=== PATIENT | male | born 1945 | race Caucasian/White ===

== ENCOUNTER 2018-07-08 05:17 | Inpatient (IN) | payer MEDICARE, OTHER ==
[2018-06-30 13:11] LABS: CLARITY,URINE CLEAR (Clear); COLOR,URINE YELLOW (Yellow); GLUCOSE, URINE NEGATIVE (Neg); KETONES,URINE NEGATIVE (Neg); LEUKOCYTE ESTERASE ,URINE NEGATIVE (Neg); NITRITES, URINE NEGATIVE (Neg); OCCULT BLOOD,URINE NEGATIVE (Neg); PROTEIN,URINE NEGATIVE (Neg); UROBILINOGEN,URINE 0.2 E.U/dL (0.2-1.0)
[2018-06-30 13:11] LABS: BASOPHILS % (AUTO) 0.6 % (0-1); EOSINOPHILS # (AUTO) 0.1 X10'3 (0-0.9); EOSINOPHILS % (AUTO) 1.3 % (0-6); LYMPHOCYTES # (AUTO) 1.6 X10'3 (1.1-4.8); LYMPHOCYTES % (AUTO) 21.4 % (21-51); MEAN CORPUSCULAR HEMOGLOBIN 32.5 PG (27.0-31.0); MEAN CORPUSCULAR HGB CONC 34.6 g/dL (33.0-36.5); MEAN CORPUSCULAR VOLUME 93.8 FL (78-98); MEAN PLATELET VOLUME 7.7 FL (7.4-10.4); MONOCYTES # (AUTO) 0.7 X10'3 (0-0.9); MONOCYTES % (AUTO) 9.5 % (2-12); NEUTROPHILS # (AUTO) 5.1 X10'3 (1.8-7.7); NEUTROPHILS % (AUTO) 67.2 % (42-75); PRE OP HEMATOCRIT 44.8 % (42.0-52.0); PRE OP HEMOGLOBIN 15.5 g/dL (14.0-17.9); PRE OP PLATELET COUNT 273 X10'3 (140-440); RED BLOOD COUNT 4.78 X10'6 (4.70-6.10); RED CELL DISTRIBUTION WIDTH 13.2 % (11.5-14.5)
[2018-06-30 13:13] LABS: UA COLLECTION TYPE CLN CATCH MIDSTREAM
[2018-06-30 13:27] LABS: ALBUMIN/GLOBULIN RATIO 1.3 (1.1-1.5); ALKALINE PHOSPHATASE 40 IU/L (46-116); BLOOD UREA NITROGEN 18 MG/DL (7-18); BUN/CREATININE RATIO 11.8 (5.4-32.0); CALCIUM 10.3 MG/DL (8.5-10.1); CHLORIDE 106 MMOL/L (99-107); CREATININE 1.52 MG/DL (0.60-1.10); PRE OP ALT 52 U/L (30-65); PRE OP ANION GAP 7 (8-16); PRE OP AST 33 U/L (10-37); PRE OP BILIRUB, TOTAL 0.4 MG/DL (0.0-1.0); PRE OP GLUCOSE 105 MG/DL (70-104); PRE OP POTASSIUM 3.9 MMOL/L (3.4-5.1); PRE OP SODIUM 143 MMOL/L (135-145); TOTAL CARBON DIOXIDE 30.1 MMOL/L (24-32); TOTAL PROTEIN 7.1 G/DL (6.4-8.2); eGFR 45 ML/MIN
[~2018-07-08] VITALS: Ht 177.8 cm; Wt 90.2 kg
[2018-07-08] VITALS (30 sets, daily range): BP systolic 111–168; BP diastolic 69–96
[~2018-07-08 05:17] MED LIST: ASPI81TA52 PO; ATOR20TA66 PO; FENO150C4 PO; LISI40TA4 PO; METO-384 PO
[2018-07-08] MEDS ORDERED: DOCUMENT DATE & TIME OF BETA-BLOCKER PO ONE (05:30)
[2018-07-08] MEDS ORDERED: famotidine 20mg tablet PO ONE (05:30)
[2018-07-08] MEDS ORDERED: gabapentin 300mg capsule PO ONE (05:30)
[2018-07-08] MEDS ORDERED: cefazolin/dext.iso 2gm/100ml 100 ML IV ONE (05:30)
[2018-07-08] MEDS ORDERED: tranexamic acid inj. 1,000 MG in normal saline 100 ML IV ONE (05:30)
[2018-07-08] MEDS ORDERED: oxyCODONE SR 10mg (sust. release) tab PO ONE (05:30)
[2018-07-08] MEDS ORDERED: metoclopramide 5 mg/ml inj IV ONE (05:30)
[2018-07-08] MEDS ORDERED: acetaminophen 325mg tablet PO ONE (05:30)
[2018-07-08] MEDS ORDERED: vancomycin inj 1,500 MG in normal saline 300ml IV soln IV ONE (05:30)
[2018-07-08] MEDS ORDERED: LIDOcaine 1% (10mg/ml) 2ml vial ONE (05:31)
[2018-07-08] MEDS ORDERED: EPINEPHRINE SQ ONE (06:40)
[2018-07-08] MEDS ORDERED: ROPIVACAINE SQ ONE (06:40)
[2018-07-08] MEDS ORDERED: MORPHINE SQ ONE (06:40)
[2018-07-08] MEDS ORDERED: [UNRECOGNIZED DRUG - OTHER] SQ ONE (06:40)
[2018-07-08] MEDS ORDERED: ketorolac trometh. 30mg/ml inj. ONE (06:45)
[2018-07-08] MEDS ORDERED: vancomycin 1,000mg inj ONE (06:46)
[2018-07-08] MEDS ORDERED: ROPIVAcaine inj 200 MG, epiNEPHrine inj 0.6 MG, morphine 10mg/ml inj. 5 MG in normal sa... SQ ONE (07:00)
[2018-07-08] MEDS ORDERED: ROPIVAcaine 0.5% (5mg/ml) 30ml vial ONE (07:18)
[2018-07-08] MEDS ORDERED: fentaNYL /PF 50mcg/ml 5ml ampule ONE (07:20)
[2018-07-08] MEDS ORDERED: midazolam 2 mg/2 ml injection ONE (07:20)
[2018-07-08] MEDS ORDERED: etomidate 2mg/ml inj. ONE (07:21)
[2018-07-08] MEDS ORDERED: ondansetron/PF 4mg/2ml inj ONE (07:21)
[2018-07-08] MEDS ORDERED: dexamethasone sod phosphate 4mg/ml inj. ONE (07:21)
[2018-07-08] MEDS ORDERED: phenylephrine 10mg/ml inj. ONE (07:23)
[2018-07-08] MEDS ORDERED: ringers solution, lacted 1,000 ML IV SCH (07:29)
[2018-07-08] MEDS ORDERED: hydrALAZINE 20mg/ml inj. IV PRN (07:30)
[2018-07-08] MEDS ORDERED: ondansetron/PF 4mg/2ml inj IV PRN ×2 (07:30→10:00)
[2018-07-08] MEDS ORDERED: ROPIVAcaine 0.2%/PF PAIN PUMP 400 ML IJ SCH (07:30)
[2018-07-08] MEDS ORDERED: morphine 4 MG/ML inj SYRINge IV PRN (07:30)
[2018-07-08] MEDS ORDERED: fentaNYL/PF 50MCG/1 ML 2ML syringe IV PRN ×2 (07:30)
[2018-07-08] MEDS ORDERED: labetalol 20mg/4ml (5mg/ml) syringe IV PRN (07:30)
[2018-07-08] MEDS ORDERED: sevoflurane 250ml liquid IH ONE (07:33)
[2018-07-08] MEDS ORDERED: hydrALAZINE 20mg/ml inj. IV ONE (08:29)
[2018-07-08] MEDS: ceFAZolin 1000mg inj ONE ×2 (08:31→08:32)
[2018-07-08] MEDS: potassium cl 20mEq in 1/2 NS 1,000 ML IV SCH ×2 (09:58→20:29)
[2018-07-08] MEDS ORDERED: oxyCODONE IR 5mg (immed. release) tablet PO PRN (10:00)
[2018-07-08] MEDS ORDERED: acetaminophen 325mg tablet PO PRN (10:00)
[2018-07-08] MEDS ORDERED: bisacodyl 10mg suppository rectal RC PRN (10:00)
[2018-07-08] MEDS ORDERED: HYDROmorphone 1 mg/ml syringe IV PRN (10:00)
[2018-07-08] MEDS ORDERED: magnesium hydroxide 30ml (MOM) UD suspension PO PRN (10:00)
[2018-07-08] MEDS ORDERED: diphenhydrAMINE 25mg capsule PO PRN ×2 (10:00)
[2018-07-08] MEDS ORDERED: HYDROmorphone inj. 0.5 MG/0.5 ML DISP.SYRIN IV PRN (10:00)
--- NOTE | 2018-07-08 10:41 | NUR ---
Received from OR via BED, accompanied by Anesthesiologist DR MOSQUERA and report given by Anesthesiologist. PT DROWSY, DENIES PAIN, RIGHT KNEE W/DRSG, ICE PACK, LEG WRAP, PATRICIO DRAIN, ACB CATHETER, CDI. PTS RIGHT COOLER THAN LEFT, DOPPLER QUALITY PULSES ON RIGHT W/STRONG PALPABLE PULSE ON LEFT DORSALIS PEDIS. WILL MONITOR, WRAPPED FEET IN WARM BLANKETS. Addendum: 07/08/18 at 1133 by Linnea Crowder RN Amended: Links added.
[2018-07-08] MEDS: morphine 4 MG/ML inj SYRINge IV PRN ×2 (11:11→11:34)
[2018-07-08] MEDS: gabapentin 300mg capsule PO SCH ×2 (13:00→20:22)
[2018-07-08] MEDS ORDERED: tranexamic acid inj. 900 MG in normal saline 100ml IV soln 100 ML IV ONE (13:30)
[2018-07-08] MEDS: acetaminophen 325mg tablet PO SCH ×2 (14:00→20:22)
--- NOTE | 2018-07-08 14:31 | NUR ---
Report called to receiving nurse. Transferred via BED Belongings WITH PT, 1 BAG OF BELONGINGS, GLASSES. VSS. PAIN LEVEL TRENDING DOWN, WELL CONTROLLED PER PT. TOLERATING PO FLUIDS WELL. ALANIS WAS DCD PER DR NICK' ORDER. AMANDA TORRES. TRANSFERRED TO ORTHO FLOOR IN STABLE CONDITION. Special Issues communicated to receiving nurse.
[2018-07-08] MEDS: ceFAZolin 1GM/D5W- ADD-VANTAGE 50 ML IV SCH ×2 (17:49→23:39)
--- NOTE | 2018-07-08 18:30 | NUR ---
Patient in room ORTHO 4009. I have received report from KARENA PENALOZA and had the opportunity to ask questions and assume patient care.
[2018-07-08] MEDS ORDERED: vancomycin/NS 1 GM ADD-VANTAGE 250 ML IV SCH (20:00)
[2018-07-08] MEDS: sennosides 8.6mg tablet PO SCH (20:19)
[2018-07-08] MEDS: metoprolol succinate 25mg (24-HOUR) SR. Tablet PO SCH (20:20)
[2018-07-08] MEDS: atorvastatin 20mg tablet PO SCH (20:21)
[2018-07-08] MEDS: oxyCODONE IR 5mg (immed. release) tablet PO PRN (20:24)
[2018-07-08] MEDS: normal saline 1000ml 1,000 ML IV SCH (22:41)
[2018-07-09] MEDS: potassium cl 20mEq in 1/2 NS 1,000 ML IV SCH ×3 (01:58→17:58)
[2018-07-09 02:00] VITALS: BP 123/78
[2018-07-09] MEDS: acetaminophen 325mg tablet PO SCH ×4 (02:00→20:24)
[2018-07-09 05:00] VITALS: BP 164/86
[2018-07-09 06:01] LABS: BASOPHILS # (AUTO) 0.1 X10'3 (0-0.2); BASOPHILS % (AUTO) 0.5 % (0-1); EOSINOPHILS % (AUTO) 0.1 % (0-6); HEMATOCRIT 40.6 % (42.0-52.0); LYMPHOCYTES # (AUTO) 1.4 X10'3 (1.1-4.8); LYMPHOCYTES % (AUTO) 7.6 % (21-51); MEAN CORPUSCULAR HEMOGLOBIN 32.1 PG (27.0-31.0); MEAN CORPUSCULAR HGB CONC 34.4 g/dL (33.0-36.5); MEAN CORPUSCULAR VOLUME 93.2 FL (78-98); MEAN PLATELET VOLUME 7.8 FL (7.4-10.4); MONOCYTES # (AUTO) 1.5 X10'3 (0-0.9); MONOCYTES % (AUTO) 8.5 % (2-12); NEUTROPHILS % (AUTO) 83.3 % (42-75); PLATELET COUNT 268 X10'3 (140-440); RED BLOOD COUNT 4.35 X10'6 (4.70-6.10)
[2018-07-09 06:05] LABS: ANION GAP 10 (8-16); CHLORIDE 106 MMOL/L (99-107); POTASSIUM 4.4 MMOL/L (3.5-5.1); SODIUM 140 MMOL/L (135-145); TOTAL CARBON DIOXIDE 23.7 MMOL/L (24-32)
--- NOTE | 2018-07-09 06:34 | NUR ---
Problems reprioritized. Patient report given, questions answered & plan of care reviewed with asra Ramirez.
[2018-07-09] MEDS ORDERED: aspirin 325mg tablet PO SCH (08:30)
[2018-07-09] MEDS: fenofibrate 145mg tablet PO SCH (08:47)
[2018-07-09] MEDS: gabapentin 300mg capsule PO SCH ×3 (08:48→20:23)
[2018-07-09] MEDS: aspirin 81mg tablet.DR PO SCH (08:48)
[2018-07-09] MEDS: lisinopril 20mg tablet PO SCH (08:51)
[2018-07-09 10:00] VITALS: BP 137/74
[2018-07-09] MEDS: normal saline 1000ml 1,000 ML IV SCH (10:55)
--- NOTE | 2018-07-09 12:59 | NUR ---
Joint consult: Pt s/p surgery to knee seen at bedside given written and verbal high protein education. Pt with no questions at this time, RD contact information provided. Pt on regular diet with no documented PO intake. Pt endorses a good appetite and states he is eating 100% meeting nutrient needs. Pt agreeable to double protein TID, d/w dietary. Will continue to follow. Addendum: 07/09/18 at [address] Amended: Links added.
[2018-07-09 14:00] VITALS: BP 130/74
[2018-07-09] MEDS: oxyCODONE IR 5mg (immed. release) tablet PO PRN (14:15)
[2018-07-09 18:00] VITALS: BP 110/66
--- NOTE | 2018-07-09 18:30 | NUR ---
Patient in room ORTHO 4009. I have received report from KARENA Ramirez and had the opportunity to ask questions and assume patient care.
--- NOTE | 2018-07-09 18:31 | NUR ---
Report to Stacy Aguilar
[2018-07-09] MEDS: atorvastatin 20mg tablet PO SCH (20:23)
[2018-07-09] MEDS: metoprolol succinate 25mg (24-HOUR) SR. Tablet PO SCH (20:24)
[2018-07-09] MEDS: sennosides 8.6mg tablet PO SCH (20:24)
[2018-07-09 22:00] VITALS: BP 139/83
[2018-07-10] MEDS: potassium cl 20mEq in 1/2 NS 1,000 ML IV SCH (01:58)
[2018-07-10] MEDS: acetaminophen 325mg tablet PO SCH ×2 (02:00→08:14)
[2018-07-10] MEDS: oxyCODONE IR 5mg (immed. release) tablet PO PRN ×2 (05:36→12:23)
--- NOTE | 2018-07-10 06:27 | NUR ---
Problems reprioritized. Patient report given, questions answered & plan of care reviewed with KARENA Ramirez.
[2018-07-10 06:51] VITALS: BP 135/80
[2018-07-10 07:53] LABS: BASOPHILS # (AUTO) 0.1 X10'3 (0-0.2); BASOPHILS % (AUTO) 0.6 % (0-1); EOSINOPHILS # (AUTO) 0.1 X10'3 (0-0.9); EOSINOPHILS % (AUTO) 0.6 % (0-6); HEMATOCRIT 41.6 % (42.0-52.0); HEMOGLOBIN 14.1 g/dl (14.0-17.9); LYMPHOCYTES # (AUTO) 1.9 X10'3 (1.1-4.8); LYMPHOCYTES % (AUTO) 14.3 % (21-51); MEAN CORPUSCULAR HEMOGLOBIN 32.1 PG (27.0-31.0); MEAN CORPUSCULAR HGB CONC 33.7 g/dL (33.0-36.5); MEAN PLATELET VOLUME 7.8 FL (7.4-10.4); MONOCYTES # (AUTO) 1.7 X10'3 (0-0.9); MONOCYTES % (AUTO) 12.8 % (2-12); NEUTROPHILS # (AUTO) 9.6 X10'3 (1.8-7.7); NEUTROPHILS % (AUTO) 71.7 % (42-75); PLATELET COUNT 251 X10'3 (140-440); RED BLOOD COUNT 4.38 X10'6 (4.70-6.10); RED CELL DISTRIBUTION WIDTH 13.1 % (11.5-14.5); WHITE BLOOD COUNT 13.4 X10'3 (4.5-11.0)
[2018-07-10 08:11] VITALS: BP_SYST 135
[2018-07-10] MEDS: lisinopril 20mg tablet PO SCH (08:13)
[2018-07-10] MEDS: aspirin 81mg tablet.DR PO SCH (08:13)
[2018-07-10] MEDS: fenofibrate 145mg tablet PO SCH (08:13)
[2018-07-10] MEDS: gabapentin 300mg capsule PO SCH (08:14)
[2018-07-10 10:00] VITALS: BP 123/72
[2018-07-10] MEDS ORDERED: acetaminophen 325mg tablet PO PRN (10:00)
--- NOTE | 2018-07-10 10:52 | NUR ---
Discontinued Addendum: 07/10/18 at 1055 by France Rutherford STUDENT [facility] 20 gauge IV dc'd pt tolerated well cannula in tact
--- NOTE | 2018-07-10 10:55 | NUR ---
ON'Q dc'd pt tolerated well cannula in tact
[2018-07-10 11:03] VITALS: BP 123/72
== END 2018-07-10 12:45 | disposition home health service (06) | DRG 470 ==
LOC: PAS IN 05:17 → EDSTATUS 08:30 → ORTHO 4S 14:15
PROVIDERS: ADMIT Orthopaedic Surgery; ATTEND Orthopaedic Surgery
PROC: 8E0YXCZ Robotic Assisted Procedure of Lower Extremity (ICD-10-PCS; 2018-07-08)
PROC: 3E0T3BZ Introduction of Anesthetic Agent into Peripheral Nerves and Plexi, Percutaneous Approach (ICD-10-PCS; 2018-07-08)
PROC: 0SRC069 Replacement of Right Knee Joint with Oxidized Zirconium on Polyethylene Synthetic Substitute, Cemented, Open Approach (ICD-10-PCS; principal; 2018-07-08 07:38)
DX: M17.11 Unilateral primary osteoarthritis, right knee (principal); N18.4 Chronic kidney disease, stage 4 (severe); I25.10 Atherosclerotic heart disease of native coronary artery without angina pectoris; E78.5 Hyperlipidemia, unspecified; I12.9 Hypertensive chronic kidney disease with stage 1 through stage 4 chronic kidney disease, or unspecified chronic kidney disease; Z95.1 Presence of aortocoronary bypass graft; Z79.899 Other long term (current) drug therapy; Z79.82 Long term (current) use of aspirin
CPT/HCPCS: 36415; 80051; 80053; 81003; 82948; 85025; 87070; 97110; 97116; 97162; 97530; A6455; A7000; C1713; C1758; C1776; C9250; G0378; J0171; J0360; J0690; J1100; J1885; J2250; J2270; J2274; J2370; J2405; J2765; J2795; J3010; J3370; J3490; J7030; J7120

== ENCOUNTER 2018-11-18 05:30 | Inpatient (IN) | payer MEDICARE, OTHER ==
[2018-11-12 15:59] LABS: BASOPHILS # (AUTO) 0.1 X10'3 (0-0.2); BASOPHILS % (AUTO) 0.9 % (0-1); EOSINOPHILS # (AUTO) 0.2 X10'3 (0-0.9); EOSINOPHILS % (AUTO) 2.7 % (0-6); LYMPHOCYTES # (AUTO) 1.9 X10'3 (1.1-4.8); LYMPHOCYTES % (AUTO) 27.4 % (21-51); MEAN CORPUSCULAR HEMOGLOBIN 30.7 PG (27.0-31.0); MEAN CORPUSCULAR HGB CONC 33.9 g/dL (33.0-36.5); MEAN CORPUSCULAR VOLUME 90.6 FL (78-98); MEAN PLATELET VOLUME 8.1 FL (7.4-10.4); MONOCYTES # (AUTO) 0.7 X10'3 (0-0.9); MONOCYTES % (AUTO) 10.7 % (2-12); NEUTROPHILS % (AUTO) 58.3 % (42-75); PRE OP HEMATOCRIT 46.7 % (42.0-52.0); PRE OP HEMOGLOBIN 15.8 g/dL (14.0-17.9); PRE OP PLATELET COUNT 268 X10'3 (140-440); RED BLOOD COUNT 5.15 X10'6 (4.70-6.10); RED CELL DISTRIBUTION WIDTH 13.7 % (11.5-14.5)
[2018-11-12 16:11] LABS: ALBUMIN 3.9 G/DL (3.4-5.0); ALBUMIN/GLOBULIN RATIO 1.1 (1.1-1.5); ALKALINE PHOSPHATASE 61 IU/L (46-116); BLOOD UREA NITROGEN 26 MG/DL (7-18); BUN/CREATININE RATIO 15.8 (5.4-32.0); CALCIUM 9.3 MG/DL (8.5-10.1); CHLORIDE 107 MMOL/L (99-107); CREATININE 1.65 MG/DL (0.60-1.10); PRE OP ALT 52 U/L (30-65); PRE OP ANION GAP 8 (8-16); PRE OP AST 32 U/L (10-37); PRE OP BILIRUB, TOTAL 0.5 MG/DL (0.0-1.0); PRE OP GLUCOSE 140 MG/DL (70-104); PRE OP POTASSIUM 4.2 MMOL/L (3.4-5.1); PRE OP SODIUM 140 MMOL/L (135-145); TOTAL CARBON DIOXIDE 25.3 MMOL/L (24-32); TOTAL PROTEIN 7.4 G/DL (6.4-8.2); eGFR 41 ML/MIN
[2018-11-12 16:45] LABS: PRE OP PROTIME 10.3 SECONDS (9.0-12.0)
[~2018-11-18] VITALS: Ht 177.8 cm; Wt 90.7 kg
[2018-11-18] VITALS (18 sets, daily range): BP systolic 95–135; BP diastolic 53–85
[~2018-11-18 05:30] MED LIST changes: -ASPI81TA52 PO; +DOCUMENT DATE & TIME OF BETA-BLOCKER PO ONE; +acetaminophen 325mg tablet PO ONE; +cefazolin/dext.iso 2gm/100 ML IV ONE; +famotidine 20mg tablet PO ONE; +gabapentin 300mg capsule PO ONE; +metoclopramide 5 mg/ml inj IV ONE; +oxyCODONE SR 10mg (sust. release) tab PO ONE; +ringers solution, lacted 1,000 ML IV SCH; +tranexamic acid inj. 1,000 MG in normal saline 100 ML IV ONE; +vancomycin inj 1,500 MG in normal saline 300ml IV soln IV ONE
[2018-11-18] MEDS ORDERED: ketorolac trometh. 30mg/ml inj. ONE (06:48)
[2018-11-18] MEDS ORDERED: epiNEPHrine 1 mg/ml inj ONE (06:48)
[2018-11-18] MEDS ORDERED: morphine 10mg/ml inj. ONE (06:50)
[2018-11-18] MEDS ORDERED: Thrombin (Bovine) 5,000 unit vial TP ONE (06:51)
[2018-11-18] MEDS ORDERED: ROPIVAcaine 0.5% (5mg/ml) 30ml vial ONE ×3 (06:51→10:35)
[2018-11-18] MEDS ORDERED: vancomycin 1,000mg inj ONE (06:51)
[2018-11-18] MEDS ORDERED: tranexamic acid inj. 1,000 MG in normal saline 100ml IV soln 100 ML IV ONE ×2 (07:20→14:00)
[2018-11-18] MEDS ORDERED: neostigmine methylsulfate 1 MG/ML 10ml vial ONE (07:30)
[2018-11-18] MEDS ORDERED: fentaNYL/PF 50MCG/1 ML 2ML syringe ONE (07:44)
[2018-11-18] MEDS ORDERED: MIDAZolam 1mg/ml 10ml vial ONE (07:44)
[2018-11-18] MEDS: ceFAZolin 1000mg inj ONE ×2 (08:30→08:31)
[2018-11-18] MEDS ORDERED: calcium chloride 100 MG/1 ML inj IV ONE (09:38)
[2018-11-18] MEDS ORDERED: ringers solution, lacted 1,000 ML IV SCH (10:11)
[2018-11-18] MEDS ORDERED: ondansetron/PF 4mg/2ml inj IV PRN ×2 (10:15→11:05)
[2018-11-18] MEDS ORDERED: proCHLORperazine 10 MG/2 ml inj IV PRN (10:15)
[2018-11-18] MEDS ORDERED: meperidine/PF 25mg/ml syringe IV PRN ×3 (10:15)
[2018-11-18] MEDS ORDERED: morphine 4 MG/ML inj SYRINge IV PRN ×2 (10:15)
[2018-11-18] MEDS ORDERED: magnesium hydroxide 30ml (MOM) UD suspension PO PRN (11:05)
[2018-11-18] MEDS ORDERED: HYDROmorphone inj. 0.5 MG/0.5 ML DISP.SYRIN IV PRN (11:05)
[2018-11-18] MEDS ORDERED: oxyCODONE IR 5mg (immed. release) tablet PO PRN (11:05)
[2018-11-18] MEDS ORDERED: diphenhydrAMINE 25mg capsule PO PRN ×2 (11:05)
[2018-11-18] MEDS ORDERED: HYDROmorphone 1 mg/ml syringe IV PRN (11:05)
[2018-11-18] MEDS ORDERED: bisacodyl 10mg suppository rectal RC PRN (11:05)
[2018-11-18] MEDS ORDERED: acetaminophen 325mg tablet PO PRN (11:05)
--- NOTE | 2018-11-18 11:08 | NUR ---
Received from OR via , accompanied by Anesthesiologist Dr. Mendes and report given by Anesthesiolgist. Patient arrived via hospital bed, vss as charted. 95% 2lnc. PIV 18 gauge right wrist with ivf as scheduled. lan dressing to left knee with ice pack, CDI. SCDS IN PLACE ORDERED. WILL CONTINUE TO MONITOR.
--- NOTE | 2018-11-18 11:08 | NUR ---
SENSATION NOTED AT KNEES BILATERALLY.
[2018-11-18] MEDS: ROPIVAcaine 0.2%/PF PAIN PUMP 550 ML IJ SCH (11:58)
--- NOTE | 2018-11-18 12:08 | NUR ---
PATIENT DC CRITERIA MET, REPORT CALLED TO [facility]URST[facility] ON ORTHO, ALL QUESTIONS AND CONCERNS ADDRESSED. PATIENT TRANSFERRED VIA HOSPITAL BED, WITH ALL PERSONAL BELONGING. DRESSING TO RIGHT KNEE WITH ICE PACK, CDI. IVF INFUSING ORDERED, 18 GAUGE TO RIGHT WRIST. F/C IN PLACE DRAINING YELLOW DRAINAGE.
--- NOTE | 2018-11-18 12:20 | NUR ---
Received patient report from recovery nurse
[2018-11-18] MEDS: gabapentin 300mg capsule PO SCH ×2 (13:00→21:22)
[2018-11-18] MEDS: ceFAZolin 1GM/D5W- ADD-VANTAGE 50 ML IV SCH ×2 (16:17→23:59)
[2018-11-18] MEDS: potassium cl 20mEq in 1/2 NS 1,000 ML IV SCH ×2 (16:17→19:03)
--- NOTE | 2018-11-18 18:24 | NUR ---
Problems reprioritized. Patient report given, questions answered & plan of care reviewed with Constance THURSTON.
[2018-11-18] MEDS: oxyCODONE IR 5mg (immed. release) tablet PO PRN (20:00)
[2018-11-18] MEDS ORDERED: vancomycin/NS 1 GM ADD-VANTAGE 250 ML IV SCH (20:00)
[2018-11-18] MEDS: sennosides 8.6mg tablet PO SCH (21:22)
--- NOTE | 2018-11-18 22:28 | NUR ---
turned onQ pump down to 4 while pt resting. will continue to assess for pain
[2018-11-19] VITALS (7 sets, daily range): BP systolic 114–163; BP diastolic 70–92
[2018-11-19] MEDS: oxyCODONE IR 5mg (immed. release) tablet PO PRN ×5 (00:03→21:23)
[2018-11-19] MEDS: potassium cl 20mEq in 1/2 NS 1,000 ML IV SCH ×3 (05:05→19:03)
--- NOTE | 2018-11-19 06:34 | NUR ---
reported to days. noted pt resting w/o distress. ready to work with PT.
[2018-11-19 06:46] LABS: BASOPHILS # (AUTO) 0.1 X10'3 (0-0.2); BASOPHILS % (AUTO) 0.4 % (0-1); EOSINOPHILS % (AUTO) 0.2 % (0-6); HEMATOCRIT 41.1 % (42.0-52.0); HEMOGLOBIN 14.1 g/dl (14.0-17.9); LYMPHOCYTES # (AUTO) 1.3 X10'3 (1.1-4.8); LYMPHOCYTES % (AUTO) 9.6 % (21-51); MEAN CORPUSCULAR HEMOGLOBIN 30.7 PG (27.0-31.0); MEAN CORPUSCULAR HGB CONC 34.2 g/dL (33.0-36.5); MEAN CORPUSCULAR VOLUME 89.6 FL (78-98); MEAN PLATELET VOLUME 7.8 FL (7.4-10.4); MONOCYTES % (AUTO) 7.7 % (2-12); NEUTROPHILS # (AUTO) 10.8 X10'3 (1.8-7.7); NEUTROPHILS % (AUTO) 82.1 % (42-75); PLATELET COUNT 237 X10'3 (140-440); RED BLOOD COUNT 4.59 X10'6 (4.70-6.10); RED CELL DISTRIBUTION WIDTH 13.4 % (11.5-14.5); WHITE BLOOD COUNT 13.2 X10'3 (4.5-11.0)
[2018-11-19 07:05] LABS: ANION GAP 10 (8-16); CHLORIDE 106 MMOL/L (99-107); POTASSIUM 4.5 MMOL/L (3.5-5.1); SODIUM 141 MMOL/L (135-145); TOTAL CARBON DIOXIDE 24.8 MMOL/L (24-32)
[2018-11-19] MEDS ORDERED: aspirin 325mg tablet PO SCH (08:30)
[2018-11-19] MEDS: psyllium seed 3.4 gm packet PO SCH (08:41)
[2018-11-19] MEDS: gabapentin 300mg capsule PO SCH ×3 (08:41→20:31)
[2018-11-19] MEDS: fenofibrate 145mg tablet PO SCH (08:41)
[2018-11-19] MEDS: lisinopril 20mg tablet PO SCH (08:46)
[2018-11-19] MEDS: enoxaparin 30mg/0.3ml syringe SUBCUT SCH (08:47)
--- NOTE | 2018-11-19 14:39 | NUR ---
Joint replacement consult: Pt seen by RD for written/verbal high protein ed. RD reviewed high protein needs for wound healing, immune strength, high protein foods, and protein supplementation options. RD contact information provided in case of further questions. Pt requests power pudding w/ dinner given hx constipation after prior joint surgery; dietary notified. Pt is receiving multiple routine bowel care meds post-op. Addendum: 11/19/18 at [address] Amended: Links added.
--- NOTE | 2018-11-19 18:35 | NUR ---
Patient in room ORTHO 4016. I have received report from KARENA Patterson and had the opportunity to ask questions and assume patient care.
[2018-11-19] MEDS: celeCOXIB 100mg capsule PO SCH (20:31)
[2018-11-19] MEDS: sennosides 8.6mg tablet PO SCH (20:32)
[2018-11-19] MEDS ORDERED: metoprolol succinate 25mg (24-HOUR) SR. Tablet PO SCH (21:00)
[2018-11-19] MEDS ORDERED: atorvastatin 20mg tablet PO SCH (21:00)
[2018-11-19] MEDS: ROPIVAcaine 0.2%/PF PAIN PUMP 550 ML IJ SCH (21:24)
[2018-11-20] MEDS: potassium cl 20mEq in 1/2 NS 1,000 ML IV SCH (03:03)
[2018-11-20] MEDS: oxyCODONE IR 5mg (immed. release) tablet PO PRN ×3 (05:23→13:26)
[2018-11-20 06:00] VITALS: BP 166/89
[2018-11-20 06:29] LABS: BASOPHILS # (AUTO) 0.1 X10'3 (0-0.2); BASOPHILS % (AUTO) 0.6 % (0-1); EOSINOPHILS # (AUTO) 0.2 X10'3 (0-0.9); EOSINOPHILS % (AUTO) 1.7 % (0-6); HEMATOCRIT 40.4 % (42.0-52.0); HEMOGLOBIN 13.8 g/dl (14.0-17.9); LYMPHOCYTES # (AUTO) 1.8 X10'3 (1.1-4.8); LYMPHOCYTES % (AUTO) 18.5 % (21-51); MEAN CORPUSCULAR HEMOGLOBIN 30.8 PG (27.0-31.0); MEAN CORPUSCULAR HGB CONC 34.2 g/dL (33.0-36.5); MEAN CORPUSCULAR VOLUME 90.3 FL (78-98); MEAN PLATELET VOLUME 7.7 FL (7.4-10.4); MONOCYTES # (AUTO) 1.6 X10'3 (0-0.9); MONOCYTES % (AUTO) 16.6 % (2-12); NEUTROPHILS % (AUTO) 62.6 % (42-75); PLATELET COUNT 232 X10'3 (140-440); RED BLOOD COUNT 4.47 X10'6 (4.70-6.10); RED CELL DISTRIBUTION WIDTH 13.3 % (11.5-14.5); WHITE BLOOD COUNT 9.6 X10'3 (4.5-11.0)
--- NOTE | 2018-11-20 06:32 | NUR ---
Problems reprioritized. Patient report given, questions answered & plan of care reviewed with KARENA Patterson.
[2018-11-20] MEDS: psyllium seed 3.4 gm packet PO SCH (08:00)
[2018-11-20] MEDS: enoxaparin 30mg/0.3ml syringe SUBCUT SCH (09:27)
[2018-11-20] MEDS: lisinopril 20mg tablet PO SCH (09:30)
[2018-11-20] MEDS: fenofibrate 145mg tablet PO SCH (09:30)
[2018-11-20] MEDS: gabapentin 300mg capsule PO SCH ×2 (09:31→13:26)
[2018-11-20] MEDS: celeCOXIB 100mg capsule PO SCH (09:31)
[2018-11-20 10:05] VITALS: BP 155/81
[2018-11-20] MEDS ORDERED: acetaminophen 325mg tablet PO PRN (11:05)
== END 2018-11-20 13:30 | disposition home health service (06) | DRG 470 ==
LOC: PAS IN 05:30 → EDSTATUS 07:30 → ORTHO 4S 12:20
PROVIDERS: ADMIT Orthopaedic Surgery; ATTEND Orthopaedic Surgery
PROC: 0SRD069 Replacement of Left Knee Joint with Oxidized Zirconium on Polyethylene Synthetic Substitute, Cemented, Open Approach (ICD-10-PCS; principal; 2018-11-18 07:30)
DX: M17.12 Unilateral primary osteoarthritis, left knee (principal); D62 Acute posthemorrhagic anemia; M25.562 Pain in left knee; I12.9 Hypertensive chronic kidney disease with stage 1 through stage 4 chronic kidney disease, or unspecified chronic kidney disease; N18.3 Chronic kidney disease, stage 3 (moderate); Z87.891 Personal history of nicotine dependence; I25.10 Atherosclerotic heart disease of native coronary artery without angina pectoris; Z95.1 Presence of aortocoronary bypass graft; E78.5 Hyperlipidemia, unspecified
CPT/HCPCS: 36415; 80051; 80053; 82948; 85025; 85610; 85730; 87081; 93005; 97110; 97116; 97161; 97530; A4215; A6454; A7000; C1713; C1758; C1776; G0378; J0171; J0690; J1170; J1650; J1885; J2250; J2270; J2710; J2765; J2795; J3010; J3370; J3480; J7120